=== PATIENT | female | born 1970 | race Caucasian/White ===

== ENCOUNTER 2018-12-10 10:06 | Inpatient (IN) | payer OTHER ==
[2018-12-10 10:26] VITALS: BMI 17.4
--- NOTE | 2018-12-10 11:02 | HP ---
CIWA Score Nausea/Vomitin Muscle Tremors: 4-Moderate,w/Arms Extend Anxiety: 4-Mod. Anxious/Guarded Agitation: 3 Paroxysmal Sweats: 1-Minimal Palms Moist Orientation: 0-Oriented Tacttile Disturbances: 0-None Auditory Disturbances: 0-None Visual Disturbances: 0-None Headache: 3-Moderate CIWA-Ar Total Score: 17 - Admission Criteria OASAS Guidelines: Admission for Medically Managed Detox: Requires at least one of the followin. CIWA greater than 12 2. Seizures within the past 24 hours 3. Delirium tremens within the past 24 hours 4. Hallucinations within the past 24 hours 5. Acute intervention needed for co occurring medical disorder 6. Acute intervention needed for co occurring psychiatric disorder 7. Severe withdrawal that cannot be handled at a lower level of care (continued vomiting, continued diarrhea, abnormal vital signs) requiring intravenous medication and/or fluids 8. Admission ROS [facility] Chief Complaint: " I am here for my alcohol problem." Allergies/Adverse Reactions: Allergies Allergy/AdvReac Type Severity Reaction Status Date / Time codeine Allergy Verified 12/10/18 10:21 History of Present Illness: 48 year old female with history of alcohol dependence with withdrawals. She has had multiple admission to detox and rehab. She is using up to 2 pints of vodka per day, last drank this morning. This has been a problem for her for over 20 years. She denies any other illicit substance use. She smokes ciggarettes aout 4 ciggs per day for over 35 years. She normally does not use marijuana but did smoke 1 day ago. Meds: Carvedilol 3.125 daily, Thera M plus, Lisinopril 10 mg daily, omeprazole 20 mg daily, asa 81 mg daily,vit b complex daily PMH: Stroke in 2018 in coma for 1.5 months and got up in 06/2018. She had a left frontal infarct, GERD, Valvular heart disease with CHF, she also had arrhythmia. - Ebola screening Have you traveled outside of the country in the last 21 days: No (N) Have you had contact with anyone from an Ebola affected area: No Have you been sick,other than usual withdrawal symptoms: No Do you have a fever: No - Review of Systems Constitutional: Chills, Diaphoresis EENT: reports: No Symptoms Reported Respiratory: reports: No Symptoms reported Cardiac: reports: No Symptoms Reported GI: reports: Abdominal Distended, Nausea, Abdominal cramping : reports: No Symptoms Reported Musculoskeletal: reports: No Symptoms Reported Integumentary: reports: No Symptoms Reported Neuro: reports: No Symptoms reported Endocrine: reports: No Symptoms Reported Hematology: reports: No Symptoms Reported Psychiatric: reports: No Sypmtoms Reported, Judgement Intact, Mood/Affect Appropiate, Orientated x3 Other Systems: Reviewed and Negative Patient History - Patient Medical History Hx Anemia: No Hx Asthma: No Hx Chronic Obstructive Pulmonary Disease (COPD): No Hx Cancer: No Hx Cardiac Disorders: Yes (unknown but might be valvular) Hx Congestive Heart Failure: Yes Hx Hypertension: Yes Hx Hypercholesterolemia: No Hx Pacemaker: No HX Cerebrovascular Accident: Yes (major anterior lobe infarct in 05/2018) Hx Seizures: No Hx Dementia: No Hx Diabetes: No Hx Gastrointestinal Disorders: Yes (omeprazole) Hx Liver Disease: No Hx Genitourinary Disorders: No Hx Sexually Transmitted Disorders: No Hx Renal Disease (ESRD): No Hx Thyroid Disease: No Hx Human Immunodeficiency Virus (HIV): No (last tested earlier this year.) Hx Hepatitis C: No Hx Depression: No Hx Suicide Attempt: No Hx Bipolar Disorder: No Hx Schizophrenia: No - Patient Surgical History Past Surgical History: No - PPD History Previous Implant?: Yes Documented Results: Negative w/o proof Implanted On Prior R Admission?: No Date: 10/13/18 PPD to be Administered?: No - Reproductive History Patient is a Female of Child Bearing Age (11 -55 yrs old): Yes - Smoking Cessation Smoking history: Current every day smoker Have you smoked in the past 12 months: Yes Aproximately how many cigarettes per day: 3 Hx Chewing Tobacco Use: No Initiated information on smoking cessation: Yes 'Breaking Loose' booklet given: 12/10/18 - Substance & Tx. History Hx Alcohol Use: Yes (2 pints per day) Hx Substance Use: Yes - Substances abused Alcohol Other (specify): vodka Substance route: Oral Frequency: Daily Amount used: 2 pints vodka Age of first use: 14 Date of last use: 12/10/18 Family Disease History - Family Disease History Family Disease History: Diabetes: Brother (1 brother diabetic), Other: Father ( from diabetic complication), Mother (heart disease), Brother, Sister ( 2 sister, one has cystic fibrosis), Son (4 boys), Daughter (4 girls) Admission Physical Exam [facility] - Vital Signs Vital Signs: Vital Signs - 24 hr 12/10/18 10:22 Temperature 97.6 F Pulse Rate 93 H Respiratory 18 Rate Blood Pressure 155/104 H Screened but not Admitted - Documentation of Visit Screened but not Admitted: No Breathalyzer - Breathalyzer Breathalyzer: 0.204 Vital Signs - Vital Signs Vital signs refused: No Temperature: 97.6 F Temperature source: Oral Pulse Rate: 93 Respiratory Rate: 18 Blood Pressure: 155/104 BP Location: Left Arm - Height Height: 5 ft 2 in - Weight Weight: 95 lb Weight measurement method: Standing scale - BMI Body Mass Index (BMI): 17.4 - Bowel Function Bowel Movement: Yes Urine Drug Screen - Control Is test valid?: Yes - Results Drug screen NEGATIVE: Yes Urine drug screen results: THC-Marijuana, MET-Methamphetamine Inpatient Rehab Admission - Rehab Decision to Admit Inpatient rehab admission?: No
[2018-12-10] MEDS ORDERED: MENTHOL/PHENOL 1 EACH UD MM PRN (11:10)
[2018-12-10] MEDS ORDERED: guaiFENesin 200 MG/10 ML 10 ML UNIT-DOSE CUPS PO PRN (11:10)
[2018-12-10] MEDS ORDERED: LOPERAMIDE HCL 2 MG CAPSULE PO PRN (11:10)
[2018-12-10] MEDS ORDERED: MAGNESIUM HYDROX 2400MG/30ML ORAL SUSPENSION 30 ML CUP PO PRN (11:10)
[2018-12-10] MEDS ORDERED: IBUPROFEN 400 MG TABLET (FP) PO PRN (11:10)
[2018-12-10] MEDS ORDERED: P-EPHED 60MG/TRIPROLIDI 2.5MG TABLET PO PRN (11:10)
[2018-12-10] MEDS ORDERED: MAG HYDROX/AL HYDROX/SIMETH 30 ML UNIT-DOSE CUP PO PRN (11:10)
[2018-12-10] MEDS ORDERED: MAGNESIUM CITRATE 300 ML BOTTLE PO PRN (11:10)
[2018-12-10] MEDS: ASPIRIN 81 MG CHEWABLE TABLETS PO SCH (12:09)
[2018-12-10] MEDS: LISINOPRIL 10 MG TABLET (FP) PO SCH (12:09)
[2018-12-10] MEDS: PANTOPRAZOLE 40 MG TABLET (FP) PO SCH (12:10)
[2018-12-10] MEDS: NICOTINE 7 MG/24 HOURS TOPICAL PATCH TD SCH (12:10)
[2018-12-10] MEDS: chlordiazePOXIDE HCL 25 MG CAPSULE PO SCH ×3 (12:10→22:03)
[2018-12-10] MEDS: CARVEDILOL 3.125 MG TABLET (FP) PO SCH ×2 (12:43→21:05)
[2018-12-10] MEDS: ACETAMINOPHEN 325 MG TABLET (FP) PO PRN ×2 (14:30→14:38)
[2018-12-10] MEDS ORDERED: ACETAMINOPHEN 325 MG TABLET (FP) PO PRN (14:54)
[2018-12-10 15:06] LABS: HEMATOCRIT 33.5 % (32.4-45.2); HEMOGLOBIN 11.2 GM/dL (10.7-15.3); MCH 34.5 pg (25.7-33.7); MCHC 33.4 g/dl (32.0-36.0); MEAN CELL VOLUME 103.4 fl (80-96); MEAN PLT VOLUME 9.5 fl (7.5-11.1); PLATELET COUNT 131 K/MM3 (134-434); RBC 3.24 M/mm3 (3.60-5.2); WHITE BLOOD COUNT 3.8 K/mm3 (4.0-10.0)
[2018-12-10 15:12] LABS: BLOOD UREA NITROGEN 19.5 mg/dL (7-18); CALCIUM 8.8 mg/dL (8.5-10.1); CREATININE 0.7 mg/dL (0.55-1.3)
[2018-12-10 15:17] LABS: POTASSIUM 2.7 mmol/L (3.5-5.1)
[2018-12-10] MEDS: POTASSIUM CHLORIDE ORAL LIQUID 20 MEQ/15 ML PO SCH ×3 (15:44→22:51)
[2018-12-10] MEDS: chlordiazePOXIDE HCL 25 MG CAPSULE PO PRN (19:54)
[2018-12-10] MEDS: IBUPROFEN 400 MG TABLET (FP) PO PRN (19:55)
[2018-12-10] MEDS: THIAMINE HCL 100 MG TABLET (FP) PO SCH (21:05)
--- NOTE | 2018-12-10 21:20 | EKG ---
Test Reason : Blood Pressure : / mmHG Vent. Rate : 077 BPM Atrial Rate : 077 BPM P-R Int : 160 ms QRS Dur : 084 ms QT Int : 424 ms P-R-T Axes : 056 010 066 degrees QTc Int : 479 ms NORMAL SINUS RHYTHM NONSPECIFIC ST ABNORMALITY ABNORMAL ECG NO PREVIOUS ECGS AVAILABLE Confirmed by ROSINA VALLE, MADINA ([id number]) on 12/10/2018 9:19:57 PM Referred By: MADI TAMAYO Confirmed By:MADINA ALMAGUER MD
[2018-12-10] MEDS: MELATONIN 5 MG TABLETS PO PRN (22:51)
[2018-12-10] MEDS ORDERED: cloNIDine HCL 0.1 MG TABLET PO ONE (23:29)
[2018-12-11] MEDS: chlordiazePOXIDE HCL 25 MG CAPSULE PO SCH ×4 (06:14→22:08)
[2018-12-11] MEDS: LISINOPRIL 10 MG TABLET (FP) PO SCH (09:59)
[2018-12-11] MEDS: PANTOPRAZOLE 40 MG TABLET (FP) PO SCH (09:59)
[2018-12-11] MEDS: ASPIRIN 81 MG CHEWABLE TABLETS PO SCH (10:00)
[2018-12-11] MEDS: NICOTINE 7 MG/24 HOURS TOPICAL PATCH TD SCH (10:00)
[2018-12-11] MEDS ORDERED: POTASSIUM CHLORIDE TABS 20 MEQ TABLET.ER (FP) PO SCH (10:00)
[2018-12-11] MEDS: CARVEDILOL 3.125 MG TABLET (FP) PO SCH ×2 (10:00→22:08)
[2018-12-11] MEDS ORDERED: PRENATAL VITAMINS W/ FOLIC ACID TABLET (FP) PO SCH (10:00)
--- NOTE | 2018-12-11 12:02 | PN ---
[facility] CIWA - CIWA Score Nausea/Vomitin-No Nausea/No Vomiting Muscle Tremors: 3 Anxiety: 2 Agitation: 3 Paroxysmal Sweats: 2 Orientation: 0-Oriented Tacttile Disturbances: 0-None Auditory Disturbances: 0-None Visual Disturbances: 0-None Headache: 0-None Present CIWA-Ar Total Score: 10 [facility] Progress Note (SOAP) Subjective: sweats shakes interrupted sleep body aches anxiety Objective: 12/11/18 12:00 Vital Signs Temperature 97.7 F 12/11/18 09:29 Pulse Rate 90 12/11/18 09:29 Respiratory Rate 18 12/11/18 09:29 Blood Pressure 137/91 12/11/18 09:29 O2 Sat by Pulse Oximetry (%) Laboratory Tests 12/10/18 12/10/18 12/10/18 11:20 11:20 13:30 WBC 3.8 L RBC 3.24 L Hgb 11.2 Hct 33.5 MCV 103.4 H MCH 34.5 H MCHC 33.4 RDW 15.0 Plt Count 131 L MPV 9.5 Sodium 143 Potassium 2.7 L* Chloride 99 Carbon Dioxide 29 Anion Gap 14 BUN 19.5 H Creatinine 0.7 Est GFR (CKD-EPI)AfAm 117.09 Est GFR (CKD-EPI)NonAf 101.02 Random Glucose 132 H Calcium 8.8 POC Urine HCG, Qual Negative pt was ordered and received KCL oral 40meq x 3 doses x one day for hypokalemia of 2.7. labs repeated aaox3 ambulating no acute distress Assessment: 12/11/18 12:02 withdrawal sx Plan: continue detox increase fluids melatonin prn pending repeated labs
[2018-12-11 12:09] LABS: POTASSIUM 4.1 mmol/L (3.5-5.1)
[2018-12-11] MEDS: chlordiazePOXIDE HCL 25 MG CAPSULE PO PRN (12:52)
[2018-12-11 13:59] LABS: PH,URINE 8.5 (5.0-8.0); URINE APPEARANCE Turbid; URINE BILIRUBIN 3+ (NEGATIVE); URINE COLOR Red; URINE GLUCOSE (UA) Trace (NEGATIVE); URINE KETONE 2+ (NEGATIVE); URINE LEUK ESTERASE 3+ (NEGATIVE); URINE NITRITE Negative (NEGATIVE); URINE PROTEIN 3+ (NEGATIVE); URINE UROBILINOGEN >=8.0 E.U./dl mg/dL (0.2-1.0)
[2018-12-11 14:17] LABS: EPI CELLS 2+ /HPF (0-5/HPF); HYALINE CASTS 0 /lpf (0-8); URINE BACTERIA FEW /hpf (NEGATIVE); URINE RBC >100 /hpf (0-4); URINE WBC 20-30 /hpf (0-5)
[2018-12-11] MEDS: IBUPROFEN 400 MG TABLET (FP) PO PRN (15:15)
[2018-12-11] MEDS ORDERED: NICOTINE POLACRILEX 2 MG GUM BUC PRN (18:16)
--- NOTE | 2018-12-11 18:18 | PN ---
S Progress Note Note: Vital Signs Temperature 97.7 F 12/11/18 17:15 Pulse Rate 88 12/11/18 17:15 Respiratory Rate 16 12/11/18 17:15 Blood Pressure 134/109 H 12/11/18 17:15 O2 Sat by Pulse Oximetry (%) asymptomatic elevated BP d/t withdrawal patient scheduled for librium 50mg at this time oe dose of lisinopril ordered increase fluids continue to monitor
[2018-12-11] MEDS ORDERED: LISINOPRIL 10 MG TABLET (FP) PO ONE (18:30)
[2018-12-11 20:57] VITALS: BP 122/95; PULSE 99; TEMP 97.9
[2018-12-11] MEDS: THIAMINE HCL 100 MG TABLET (FP) PO SCH (22:08)
[2018-12-11] MEDS: MELATONIN 5 MG TABLETS PO PRN (22:09)
[2018-12-12] MEDS: IBUPROFEN 400 MG TABLET (FP) PO PRN (00:59)
[2018-12-12] MEDS ORDERED: chlordiazePOXIDE HCL 25 MG CAPSULE PO SCH (05:00)
[2018-12-13] MEDS ORDERED: chlordiazePOXIDE HCL 10 MG CAPSULE PO PRN
[2018-12-13] MEDS ORDERED: chlordiazePOXIDE HCL 10 MG CAPSULE PO SCH (05:00)
[2018-12-14] MEDS ORDERED: chlordiazePOXIDE HCL 10 MG CAPSULE PO SCH (05:00)
[2018-12-15] MEDS ORDERED: chlordiazePOXIDE HCL 10 MG CAPSULE PO ONE (05:00)
== END 2018-12-12 05:37 | disposition left against medical advice (07) | DRG 770 ==
LOC: YASAS 10:06 → Y6N 11:35
PROVIDERS: ADMIT Surgery; ATTEND Surgery
PROC: HZ2ZZZZ Detoxification Services for Substance Abuse Treatment (ICD-10-PCS; principal; 2018-12-10)
DX: F10.230 Alcohol dependence with withdrawal, uncomplicated (principal); F17.210 Nicotine dependence, cigarettes, uncomplicated; I11.0 Hypertensive heart disease with heart failure; I50.9 Heart failure, unspecified; Z88.5 Allergy status to narcotic agent; Z86.73 Personal history of transient ischemic attack (TIA), and cerebral infarction without residual deficits
CPT/HCPCS: 36415; 80048; 80051; 81003; 81025; 85027; 86480; 93005; 93010; J0735